=== PATIENT | male | born 1995 | race Asian ===

== ENCOUNTER 2017-12-09 04:35 | Emergency (ER) | payer OTHER ==
[~2017-12-09] VITALS: Ht 177.8 cm; Wt 72.7 kg
[~2017-12-09 04:35] MED LIST: FLOMAX 0.40.4 MG/CAP PO; MOTRIN 800800 MG/TAB PO; NO HOME MEDICATIONS; NORCO 325 MG-51 TAB PO; PERCOCET 325 MG1 TA2 PO; ZOFRAN ODT4 MG PO
[2017-12-09 04:46] VITALS: TEMP 97.6
[2017-12-09] MEDS ORDERED: NORCO 325 MG-51 TAB PO (05:23)
[2017-12-09] MEDS ORDERED: ZOFRAN 4MG T4 MG/TAB PO (05:23)
[2017-12-09 05:24] LABS: COLLECTION METHOD CLEAN CATCH
[2017-12-09 05:29] LABS: BASO % 0.3 % (0.0-2.0); EOS # 0.2 (0.0-0.7); EOS % 2.2 % (0-4.0); GRAN # 3.9 (1.4-6.5); GRAN % 41.3 % (42.2-75.2); HEMATOCRIT 43.9 % (42.0-52.0); HEMOGLOBIN 14.8 g/dl (13.5-18.0); LYMPH # 4.5 (1.2-3.4); LYMPH % 48.1 % (20.0-51.0); MEAN CELL VOLUME 87 fl (80.0-100.0); MEAN CORPUSCULAR HEMOGLOBIN 29 pg (27.0-31.0); MEAN CORPUSCULAR HGB CONC 34 g/dl (33.0-37.0); MEAN PLATELET VOLUME 11.9 fl (7.4-10.4); MONO # 0.7 (0.1-0.6); MONO % 7.8 % (1.7-9.3); PLATELET COUNT 227 K/mm3 (130-400); RED BLOOD COUNT 5.07 M/mm3 (4.20-5.60); REDCELL DISTRIBUTION WIDTH-CV 13.2 % (11.5-14.5)
[2017-12-09 05:41] LABS: BUDDING YEAST Present /hpf; MUCOUS Present /lpf; PH 6 (5-8); URINE APPEARANCE Turbid; URINE BACTERIA None Seen /hpf; URINE BILIRUBIN Negative (NEGATIVE); URINE BLOOD 2+ (NEGATIVE); URINE COLOR Red; URINE GLUCOSE 1+ (NEGATIVE); URINE KETONE Negative (NEGATIVE); URINE LEUKOCYTE ESTERASE Negative (NEGATIVE); URINE NITRATE Negative (NEGATIVE); URINE PROTEIN(semi-quant) 2+ (NEGATIVE); URINE RBC >50 /hpf; URINE UROBILINOGEN Negative (NEGATIVE)
[2017-12-09 05:43] LABS: CALCIUM 9.6 mg/dL (8.4-10.2); CREATININE, serum 0.83 mg/dL (0.66-1.25); POTASSIUM 3.5 mmol/L (3.4-5.0)
[2017-12-09 06:15] VITALS: BP 122/76; PULSE 80
== END 2017-12-09 06:15 | disposition home or self-care (01) ==
LOC: COL.ER 04:35
PROVIDERS: Emergency Medicine
DX: N23 Unspecified renal colic (principal); Z87.442 Personal history of urinary calculi
CPT/HCPCS: J1885

== ENCOUNTER 2017-12-20 06:45 | Emergency (ER) | payer OTHER ==
[~2017-12-20] VITALS: Ht 177.8 cm; Wt 72.7 kg
[~2017-12-20 06:45] MED LIST changes: +ZOFRAN 4MG T4 MG/TAB PO
[2017-12-20 06:48] VITALS: BP 154/91; PULSE 71; TEMP 97.9
[2017-12-20 07:06] LABS: COLLECTION METHOD CLEAN CATCH
[2017-12-20 07:24] LABS: MUCOUS Present /lpf; PH 6 (5-8); SQUAMOUS EPITHELIAL None Seen /hpf; URINE APPEARANCE Clear; URINE BACTERIA None Seen /hpf; URINE BILIRUBIN Negative (NEGATIVE); URINE BLOOD 2+ (NEGATIVE); URINE COLOR Amber; URINE GLUCOSE Negative (NEGATIVE); URINE KETONE Negative (NEGATIVE); URINE LEUKOCYTE ESTERASE Negative (NEGATIVE); URINE NITRATE Positive (NEGATIVE); URINE PROTEIN(semi-quant) Negative (NEGATIVE); URINE UROBILINOGEN >=4.0 mg/dL (NEGATIVE)
[2017-12-20] MEDS ORDERED: CEPHALEXIN500 M1 PO (07:33)
== END 2017-12-20 08:29 | disposition home or self-care (01) ==
LOC: COL.ER 06:45
PROVIDERS: Physician Assistant
DX: N39.0 Urinary tract infection, site not specified (principal); Z87.442 Personal history of urinary calculi

== ENCOUNTER 2017-12-23 09:23 | Emergency (ER) | payer OTHER ==
[~2017-12-23] VITALS: Ht 177.8 cm; Wt 75.0 kg
[~2017-12-23 09:23] MED LIST changes: +CEPHALEXIN500 M1 PO
[2017-12-23 09:33] VITALS: BP 126/73; TEMP 99.5
[2017-12-23 10:27] LABS: COLLECTION METHOD CLEAN CATCH
[2017-12-23 10:31] LABS: BASO % 0.3 % (0.0-2.0); EOS % 0.1 % (0-4.0); GRAN # 5.7 (1.4-6.5); GRAN % 73.9 % (42.2-75.2); HEMATOCRIT 43.7 % (42.0-52.0); HEMOGLOBIN 14.7 g/dl (13.5-18.0); LYMPH # 0.9 (1.2-3.4); MEAN CELL VOLUME 87 fl (80.0-100.0); MEAN CORPUSCULAR HEMOGLOBIN 29 pg (27.0-31.0); MEAN CORPUSCULAR HGB CONC 34 g/dl (33.0-37.0); MEAN PLATELET VOLUME 10.9 fl (7.4-10.4); MONO # 1.1 (0.1-0.6); MONO % 14.3 % (1.7-9.3); PLATELET COUNT 216 K/mm3 (130-400); RED BLOOD COUNT 5.03 M/mm3 (4.20-5.60)
[2017-12-23 10:34] LABS: INFLUENZA A NEGATIVE; INFLUENZA B NEGATIVE
[2017-12-23 10:45] LABS: PH 5 (5-8); SQUAMOUS EPITHELIAL None Seen /hpf; URINE APPEARANCE Hazy; URINE BACTERIA None Seen /hpf; URINE BILIRUBIN Negative (NEGATIVE); URINE BLOOD 3+ (NEGATIVE); URINE COLOR Yellow; URINE GLUCOSE Negative (NEGATIVE); URINE KETONE Negative (NEGATIVE); URINE LEUKOCYTE ESTERASE Negative (NEGATIVE); URINE NITRATE Negative (NEGATIVE); URINE PROTEIN(semi-quant) Negative (NEGATIVE); URINE RBC >50 /hpf; URINE UROBILINOGEN Negative (NEGATIVE)
[2017-12-23 10:46] LABS: ALBUMIN 5.1 gm/dL (3.5-5.0); BILIRUBIN,TOTAL 0.9 mg/dL (0.0-1.0); C-REACTIVE PROTEIN 1.3 mg/dL (0.0-0.9); CALCIUM 9.5 mg/dL (8.4-10.2); CREATININE, serum 0.84 mg/dL (0.66-1.25); POTASSIUM 4.2 mmol/L (3.4-5.0); TOTAL PROTEIN 8.5 gm/dL (6.4-8.2)
[2017-12-23] MEDS ORDERED: NORCO 325 MG-51 TAB PO (11:03)
[2017-12-23 11:45] VITALS: PULSE 86
== END 2017-12-23 11:46 | disposition home or self-care (01) ==
LOC: COL.ER 09:23
PROVIDERS: Physician Assistant
DX: R30.0 Dysuria (principal); R31.9 Hematuria, unspecified; M54.5 Low back pain; Z87.442 Personal history of urinary calculi; N39.0 Urinary tract infection, site not specified
CPT/HCPCS: J1885; J7030